=== PATIENT | male | born 1950 | race Caucasian/White ===

== ENCOUNTER 2020-09-03 09:02 | Outpatient (CLI) | payer MEDICARE | END 2020-09-03 09:03 | disposition home or self-care (01) | LOC: TBSIIMAG 09:02 | PROVIDERS: ATTEND Neurological Surgery | DX: M54.5 Low back pain (principal); M47.817 Spondylosis without myelopathy or radiculopathy, lumbosacral region; Z98.890 Other specified postprocedural states | CPT/HCPCS: 72100 ==

== ENCOUNTER 2021-03-10 09:13 | Outpatient (CLI) | payer MEDICARE | END 2021-03-10 09:14 | disposition home or self-care (01) | LOC: MRI 09:13 | PROVIDERS: ATTEND Specialist | DX: M47.22 Other spondylosis with radiculopathy, cervical region (principal) | CPT/HCPCS: 72141 ==

== ENCOUNTER 2021-12-02 07:50 | Outpatient (CLI) | payer MEDICARE | END 2021-12-02 07:51 | disposition home or self-care (01) | LOC: BICCT 07:50 | PROVIDERS: ATTEND Family Medicine | DX: R10.9 Unspecified abdominal pain (principal); R16.0 Hepatomegaly, not elsewhere classified; K76.0 Fatty (change of) liver, not elsewhere classified; K76.89 Other specified diseases of liver; K80.20 Calculus of gallbladder without cholecystitis without obstruction | CPT/HCPCS: 74170 ==

== ENCOUNTER 2024-09-13 07:53 | Outpatient (CLI) | payer MEDICARE | END 2024-09-13 07:54 | disposition home or self-care (01) | LOC: ULT 07:53 | PROVIDERS: ATTEND Family Medicine | DX: M54.9 Dorsalgia, unspecified (principal); R16.0 Hepatomegaly, not elsewhere classified; K76.0 Fatty (change of) liver, not elsewhere classified | CPT/HCPCS: 76700 ==